=== PATIENT | female | born 1980 | race Caucasian/White ===

== ENCOUNTER 2023-07-01 18:25 | Emergency (ER) | payer MEDICAID, SELFPAY ==
--- NOTE | ~2023-07-01 | CT_ITS ---
EXAMINATION: CT ABDOMEN AND PELVIS WITH CONTRAST CLINICAL INFORMATION: Pain. COMPARISON: None available. TECHNIQUE: Multidetector volumetric images were obtained from the superior aspect of the liver through the pubic symphysis following administration 85 mL of Omnipaque 350 intravenous contrast. Sagittal and coronal reformatted images were obtained on the technologist's workstation. Oral contrast: No This CT examination was performed using dose optimization techniques as appropriate, variously including the following: *Automated exposure control *Adjustment of mA and/or kV according to patient size (this includes techniques or standardized protocols for targeted exams where dose is matched to indication/reason for exam; i.e. extremities or head) *Use of iterative reconstruction technique DLP: 552.69 mGy-cm FINDINGS: LUNG BASES: The visualized lung bases are unremarkable. LIVER, GALLBLADDER, AND BILIARY TREE: The liver is normal in size, shape, and attenuation. No focal hepatic lesion or biliary ductal dilatation is present. The gallbladder is unremarkable with no evidence of radiopaque gallstones, gallbladder wall thickening, or obvious pericholecystic inflammatory changes. PANCREAS: Unremarkable. SPLEEN: Unremarkable. ADRENAL GLANDS: There is bilateral adrenal gland nonspecific thickening.. KIDNEYS AND URETERS: The kidneys are normal in size, shape, and attenuation. No hydronephrosis, hydroureter, or calculi seen. No perinephric stranding. BLADDER: Unremarkable. GASTROINTESTINAL TRACT: The small and large bowel are unremarkable. The appendix is unremarkable. ABDOMINAL WALL: No significant hernia is appreciated. LYMPH NODES: Normal. VASCULAR: Unremarkable. PELVIC VISCERA: There is a complex mostly cystic mass within the left adnexa measuring up to 10 cm with some apparent septation and peripheral soft tissue component measuring up to 2.6 cm. OSSEOUS STRUCTURES: Unremarkable. CT/CT abdomen pelvis w IV con IMPRESSION: Complex septated mostly cystic left adnexal mass measuring up to 10 cm with an apparent peripheral soft tissue component. A cystic neoplasm is considered. Recommend nonemergent MRI and/or ultrasound assessment. No other significant abnormality seen. Fleischner guidelines were followed.
[2023-07-01 18:41] VITALS: BP 162/77; PULSE 70; RESP 18; TEMP 36.3; O2SAT 98; BMI 28.1
--- NOTE | 2023-07-01 18:41 | ED.GENADULT ---
HPI - General Adult General Chief complaint: Urogenital-Female Stated complaint: UTI symptoms Time Seen by Provider: 07/01/23 21:44 Source: patient Mode of arrival: ambulatory Limitations: no limitations History of Present Illness HPI narrative: Patient comes to the emergency room complaining of 1 episode of vomiting, intermittent nausea, suprapubic pain, complaining of dysuria , no flank pain, no fever chills. Patient's symptoms started earlier today. Related Data Previous Rx's Medication Instructions Recorded ibuprofen 400 mg tablet 400 mg PO Q6H PRN pain #30 tabs 07/02/23 tramadol 50 mg tablet 25 mg PO BID PRN pain #10 tabs 07/02/23 Allergies Allergy/AdvReac Type Severity Reaction Status Date / Time acetaminophen [From Tylenol] Allergy Nausea Verified 07/01/23 18:40 Review of Systems Review of Systems: Constitutional : No Weight loss, No Fever, No Chills, No Night Sweats, No Fatigue, No Malaise ENT/Mouth : No Hearing loss, No Ear Pain, No Nasal Congestion, No Sinus Pain, No Hoarseness, No sore throat, No Rhinorrhea, No Swallowing Difficulty Eyes: No Eye Pain, No Swelling, No Redness, No Foreign Body, No Discharge, No Vision Changes Cardiovascular : No Chest Pain, No SOB, No Dyspnea on Exertion, No Orthopnea, No Edema, No Palpitations Respiratory : No Cough, No Sputum, No Wheezing, No Smoke Exposure, No Dyspnea Gastrointestinal : Complaining of intermittent nausea and 1 episode of vomiting, No Diarrhea, No Constipation, complaining of suprapubic pain, No Hematochezia, No Melena Genitourinary : no irregular bleeding, complaining of Dysuria, No Urinary Frequency, No Hematuria, No Urinary Incontinence, No Urgency, No Flank Pain, No Urinary Flow Changes, No Hesitancy Musculoskeletal : No joint pain, No Myalgias, No Joint Swelling Skin : No Skin Lesions, No rash Neuro : No Weakness, No Numbness, No Paresthesias, No Loss of Consciousness, No Dizziness, No Headache Psych : No Anxiety/Panic, No Depression, No SI/HI/AH/VH, No Social Issues, Heme/Lymph: No Bruising, No Bleeding,No Lymphadenopathy Endocrine : No Polyuria, No Polydipsia, No Temperature Intolerance PMFSH Social History Social History Advance Directives: No Advance Directives Information Provided: No Physical Exam ED Vital Signs: Vital Signs - 24 hr 07/01/23 18:41 07/02/23 02:07 07/02/23 02:22 Temperature 97.3 F 97.6 F Pulse Rate 70 68 Respiratory Rate 18 18 16 Blood Pressure 162/77 H 160/74 H Pulse Oximetry 98 97 Oxygen Delivery Method Room Air Room Air BMI result Body Mass Index 28.1 Const Other: Appearance: Alert. Oriented X3. Seems uncomfortable Eyes: Pupils equal, round and reactive to light. ENT: Pharynx normal. Neck: Normal inspection. Neck supple. No lymph nodes noted. No crepitus CVS: Normal heart rate and rhythm. Pulses normal. Normal S1 and S2 Respiratory: No respiratory distress. Breath sounds normal. No Wheezing. No rales Abdomen: Soft and nontender. No rigidity. No distention. Skin: Skin warm and dry. Normal skin color. Normal skin turgor. Extremities: No lower extremity edema. No Lacerations. No Rash Neuro: Oriented X 3. No motor deficit. No sensory deficit. Moving all extremities. No slurred speech. CN 2 through 12 grossly intact Psych: calm, cooperative, normal affect Course Course Course Narrative: RME: 42 yold female presents to the ED lower abdominal pain and dysuria since today. Patient denies any nausea, vomitting, or flank pain. UA orderd Medications Administered Discontinued Medications Generic Name Dose Route Start Last Admin Trade Name Freq PRN Reason Stop Dose Admin Sodium Chloride 1,000 mls @ 999 mls/hr 07/01/23 21:49 07/01/23 23:05 Ns IVCONT 07/01/23 22:49 Infused .Q1H1M ONE Infusion Iohexol 85 ml 07/01/23 23:44 07/01/23 23:45 Iohexol 350 Mg/Ml 100 Ml Infus..Btl IV 07/01/23 23:45 85 ml ONCE ONE Administration Ketorolac Tromethamine 30 mg 07/01/23 21:49 07/01/23 22:10 Ketorolac Tromethamine 30 Mg/Ml Vial IVPUSH 07/01/23 21:50 30 mg ONCE ONE Administration Morphine Sulfate 4 mg 07/02/23 01:56 07/02/23 02:07 Morphine Sulfate 4 Mg/Ml Cartridge IVPUSH 07/02/23 01:57 4 mg ONCE ONE Administration Protocol Ondansetron HCl 4 mg 07/01/23 21:49 07/01/23 22:10 Ondansetron Hcl 4 Mg/2 Ml Vial IVPUSH 07/01/23 21:50 4 mg ONCE ONE Administration Medical Decision Making Medical Decision Making [facility] Narrative: -my interpretation of labs, patient has however blood cell count of 15. -patient receiving IV fluids, Zofran, Toradol -urinalysis is negative for UTI -my interpretation of CT of abdomen pelvis, there is a large mass versus cyst very close to the bladder -I discussed the radiology report with the patient. Ideally we should be getting at this time an ultrasound and in the morning and MRI. However, patient states that she has a acquisition lead at home taking care of her 10-year-old child and the patient cannot stay here. Although she is very scared about this information, patient requesting to be discharged so she can make arrangements for children's counselor and she will return in the morning in a few hours. Patient will need an ultrasound versus MRI. Differential Diagnosis Differential Diagnoses: The differential diagnosis associated with the presentation includes (Bladder cyst, ovarian cyst, bladder neoplasm, fibroid) Admission/Observation Consideration of admission/observation: Escalation of care including admission/observation considered (Admission was considered with consult to urology versus Ob Gyne, patient requested to be discharged) Lab Data [facility] Lab Attestation statement: I reviewed the patient's lab results. 07/01/23 21:11 07/01/23 21:11 Labs: Lab Results 07/01/23 07/01/23 07/01/23 Range/Units 21:11 21:11 21:11 WBC 15.0 H (4.8-10.8) X10*3/uL RBC 4.85 (4.20-5.50) X10*6/uL Hgb 14.0 (12.0-16.0) g/dl Hct 42.3 (37.0-47.0) % MCV 87.2 (80.0-98.0) fL MCH 28.9 (27.0-33.0) pg MCHC 33.1 (31.0-35.0) g/dl RDW 13.3 (11.0-16.0) % Plt Count 301 (160-400) X10*3/uL MPV 10.1 (9.4-12.3) fL Immature Gran % (Auto) 0.4 (0.0-0.4) % Neut % (Auto) 89.1 H (45-73) % Lymph % (Auto) 7.5 L (20-40) % Morrow % (Auto) 2.1 (2-11) % Eos % (Auto) 0.5 (0-4) % Baso % (Auto) 0.4 (0-2) % Lymph # (Auto) 1.1 L (1.2-4.9) X10*3/uL Morrow # (Auto) 0.3 (0.1-1.2) X10*3/uL Eos # (Auto) 0.1 (0.0-0.4) X10*3/uL Baso # (Auto) 0.1 (0.0-0.2) X10*3/uL Abs Immat Gran (auto) 0.06 H (0.00-0.03) X10*3/uL Absolute Neuts (auto) 13.4 H (2.0-8.3) x10*3/uL Absolute Nucleated RBC 0.000 (0.0-0.012) X10*3/uL Nucleated RBC % (auto) 0.0 (0.0-0.2) /100WBC Sodium 137 (135-145) mmol/L Potassium 4.2 (3.3-5.1) mmol/L Chloride 106 (96-108) mmol/L Carbon Dioxide 20 L (22-29) mmol/L Anion Gap 15 (12-20) BUN 9 (9-16) mg/dL Creatinine 0.73 (0.5-1.4) mg/dL Estim Creat Clear Calc 103.8 Estimated GFR > 60 Random Glucose 146 H (60-115) mg/dL Calcium 9.7 (8.4-10.2) mg/dL Urine Color [place] A Urine Appearance Clear Urine pH 8.0 (5.0-9.0) Ur Specific [place] 1.010 (1.005-1.025) Urine Protein See Note (Neg-Trace) mg/dL Urine Glucose (UA) See Note (Negative) mg/dL Urine Ketones See Note (Negative) mg/dL Urine Blood See Note (Negative) Urine Nitrite See Note (Negative) Ur Leukocyte Esterase See Note (Negative) Urine RBC 0-2 (0-2) /HPF Urine WBC 0-5 (0-5) /HPF Ur Squamous Epith Cells 0-2 (0-2) /HPF Urine Bacteria Trace (None Seen) Hyaline Casts 0-2 (0-2) /LPF Urine Test (NEGATIVE) 07/01/23 Range/Units 21:11 WBC (4.8-10.8) X10*3/uL RBC (4.20-5.50) X10*6/uL Hgb (12.0-16.0) g/dl Hct (37.0-47.0) % MCV (80.0-98.0) fL MCH (27.0-33.0) pg MCHC (31.0-35.0) g/dl RDW (11.0-16.0) % Plt Count (160-400) X10*3/uL MPV (9.4-12.3) fL Immature Gran % (Auto) (0.0-0.4) % Neut % (Auto) (45-73) % Lymph % (Auto) (20-40) % Morrow % (Auto) (2-11) % Eos % (Auto) (0-4) % Baso % (Auto) (0-2) % Lymph # (Auto) (1.2-4.9) X10*3/uL Morrow # (Auto) (0.1-1.2) X10*3/uL Eos # (Auto) (0.0-0.4) X10*3/uL Baso # (Auto) (0.0-0.2) X10*3/uL Abs Immat Gran (auto) (0.00-0.03) X10*3/uL Absolute Neuts (auto) (2.0-8.3) x10*3/uL Absolute Nucleated RBC (0.0-0.012) X10*3/uL Nucleated RBC % (auto) (0.0-0.2) /100WBC Sodium (135-145) mmol/L Potassium (3.3-5.1) mmol/L Chloride (96-108) mmol/L Carbon Dioxide (22-29) mmol/L Anion Gap (12-20) BUN (9-16) mg/dL Creatinine (0.5-1.4) mg/dL Estim Creat Clear Calc Estimated GFR Random Glucose (60-115) mg/dL Calcium (8.4-10.2) mg/dL Urine Color Urine Appearance Urine pH (5.0-9.0) Ur Specific [place] (1.005-1.025) Urine Protein (Neg-Trace) mg/dL Urine Glucose (UA) (Negative) mg/dL Urine Ketones (Negative) mg/dL Urine Blood (Negative) Urine Nitrite (Negative) Ur Leukocyte Esterase (Negative) Urine RBC (0-2) /HPF Urine WBC (0-5) /HPF Ur Squamous Epith Cells (0-2) /HPF Urine Bacteria (None Seen) Hyaline Casts (0-2) /LPF Urine Test NEGATIVE (NEGATIVE) Independent Interpretation I performed an independent interpretation of an: CT Scan Radiology Impression Radiologist Impression: FINDINGS: LUNG BASES: The visualized lung bases are unremarkable.? LIVER, GALLBLADDER, AND BILIARY TREE: The liver is normal in size, shape, and attenuation. No focal hepatic lesion or biliary ductal dilatation is present. The gallbladder is unremarkable with no evidence of radiopaque gallstones, gallbladder wall thickening, or obvious pericholecystic inflammatory changes.? PANCREAS: Unremarkable.? SPLEEN: Unremarkable.? ADRENAL GLANDS: There is bilateral adrenal gland nonspecific thickening..? KIDNEYS AND URETERS: The kidneys are normal in size, shape, and attenuation. No hydronephrosis, hydroureter, or calculi seen. No perinephric stranding. ? BLADDER: Unremarkable.? GASTROINTESTINAL TRACT: The small and large bowel are unremarkable. The appendix is unremarkable.? ABDOMINAL WALL: No significant hernia is appreciated.? LYMPH NODES: Normal. VASCULAR: Unremarkable. PELVIC VISCERA: There is a complex mostly cystic mass within the left adnexa measuring up to 10 cm with some apparent septation and peripheral soft tissue component measuring up to 2.6 cm.? OSSEOUS STRUCTURES: Unremarkable.? CT/CT abdomen pelvis w IV con IMPRESSION: Complex septated mostly cystic left adnexal mass measuring up to 10 cm with an apparent peripheral soft tissue component. A cystic neoplasm is considered. Recommend nonemergent MRI and/or ultrasound assessment. ? No other significant abnormality seen. Fleischner guidelines were followed. Critical Care Time Critical Care Time Critical Care Time: Yes Total Critical Care Time: 60 Attestation: I have personally provided critical care time. Time includes review of lab data, radiology results, discussion with consultants, and monitoring for potential decompensation. Intervention performed as documented. Discharge Plan Discharge Clinical Impression: Abnormal CT scan, pelvis, Dysuria Patient Disposition: Home, Self-Care Instructions: Dysuria (ED) Additional Instructions: Your CT scan of the abdomen and pelvis is abnormal, you will need an ultrasound or an MRI. You requested to be discharged home. Please return to emergency room as soon as possible for further imaging. Insert discharge Prescriptions: No Action ibuprofen 400 mg tablet 400 mg PO Q6H PRN (Reason: pain) Qty: 30 0RF tramadol 50 mg tablet 25 mg PO BID PRN (Reason: pain) Qty: 10 0RF Interventions: ED Discharge Assessment Last Done: 07/02/23 04:28 Discharge Date/Time: 07/02/23 04:29
--- NOTE | 2023-07-01 20:50 | PC.NURSE ---
UA was not collected while pt was in waiting room- pt had voided just prior to being called back to exam room. pt tearful, sts that her pain is in her lower abdomen, encouraged pt to give urine sample, water provided. call samayoa within reach
[2023-07-01 21:16] LABS: MANUAL DIFF FLAG NO
[2023-07-01 21:25] LABS: Basophils Absolute Auto 0.1 X10*3/uL (0.0-0.2); Basophils Percent Auto 0.4 % (0-2); Eosinophils Absolute Auto 0.1 X10*3/uL (0.0-0.4); Eosinophils Percent Auto 0.5 % (0-4); Hematocrit 42.3 % (37.0-47.0); Imm Gran Abs Auto 0.06 X10*3/uL (0.00-0.03); Imm Gran Pct Auto 0.4 % (0.0-0.4); Lymphocytes Absolute Auto 1.1 X10*3/uL (1.2-4.9); Lymphocytes Percent Auto 7.5 % (20-40); Mean Corpuscular HGB Conc 33.1 g/dl (31.0-35.0); Mean Corpuscular Hemoglobin 28.9 pg (27.0-33.0); Mean Corpuscular Volume 87.2 fL (80.0-98.0); Mean Platelet Volume 10.1 fL (9.4-12.3); Monocytes Absolute Auto 0.3 X10*3/uL (0.1-1.2); Monocytes Percent Auto 2.1 % (2-11); Neutrophils Absolute Auto 13.4 x10*3/uL (2.0-8.3); Neutrophils Percent Auto 89.1 % (45-73); Platelet Count 301 X10*3/uL (160-400); Red Blood Count 4.85 X10*6/uL (4.20-5.50); Red Cell Distribution Width 13.3 % (11.0-16.0)
[2023-07-01 21:29] LABS: UPreg QC Valid YES; Urine Pregnancy NEGATIVE (NEGATIVE)
[2023-07-01 21:40] LABS: Anion Gap 15 (12-20); Blood Urea Nitrogen 9 mg/dL (9-16); Calcium 9.7 mg/dL (8.4-10.2); Carbon Dioxide 20 mmol/L (22-29); Chloride 106 mmol/L (96-108); Creatinine Clr Calc Pharmacy 103.8; Estimated Glomerular Filt Rate > 60; Glucose Random 146 mg/dL (60-115); Potassium 4.2 mmol/L (3.3-5.1); Sodium 137 mmol/L (135-145)
[2023-07-01] MEDS: 0.9 % Sodium Chloride 1,000 ML 999 ML IVCONT (22:10)
[2023-07-01] MEDS: ondansetron HCL 4 MG/2 ML VIAL IVPUSH (22:10)
[2023-07-01] MEDS: Ketorolac Tromethamine 30 MG/ML VIAL IVPUSH (22:10)
[2023-07-01 22:11] LABS: Appearance Urine Clear; Color Urine Orange
[2023-07-01 22:19] LABS: Bacteria Urine Trace (None Seen); Hyaline Casts Urine 0-2 /LPF (0-2); RBC Urine 0-2 /HPF (0-2); Squamous Epithelial Cell Urine 0-2 /HPF (0-2); UMIC TRIGGER UACC YES; WBC Urine 0-5 /HPF (0-5)
[2023-07-01 22:20] LABS: UACC Culture Trigger NO
--- NOTE | 2023-07-01 23:01 | PC.NURSE ---
pt reporting increasing pain, now 06/28 provider notified via tiger connect
[2023-07-01] MEDS: iohexoL 350 MG/ML 100 ML INFUS..BTL 85 ML IV (23:45)
[2023-07-02 02:07] VITALS: RESP 18
[2023-07-02] MEDS: Morphine Sulfate 4 MG/ML CARTRIDGE IVPUSH (02:07)
[2023-07-02 02:22] VITALS: BP 160/74; PULSE 68; RESP 16; TEMP 36.4; O2SAT 97
--- NOTE | 2023-07-02 02:35 | PC.NURSE ---
pt medicated per Mar by LASHANDA Crum, Will continue to monitor.
--- NOTE | 2023-07-02 04:28 | PC.NURSE ---
Reviewed discharge instructions with pt, pt verbalized understanding, no sign of distress.
== END 2023-07-02 04:29 | disposition home or self-care (01) ==
PROVIDERS: Physician Assistant; Emergency Provider Emergency Medicine
DX: R30.0 Dysuria (principal); R11.2 Nausea with vomiting, unspecified; R10.2 Pelvic and perineal pain; R93.5 Abnormal findings on diagnostic imaging of other abdominal regions, including retroperitoneum; Z79.899 Other long term (current) drug therapy
CPT/HCPCS: 36415; 74177; 80048; 81001; 81003; 81025; 85025; 96374; 96375; 99284; J1885; J2270; J2405; Q9967

== ENCOUNTER 2023-07-02 09:21 | Emergency (ER) | payer MEDICAID, SELFPAY ==
--- NOTE | ~2023-07-02 | US_ITS ---
EXAMINATION: US PELVIS CLINICAL INFORMATION: Question ovarian mass on CT COMPARISON: CT abdomen pelvis 07/01/2023 TECHNIQUE: Ultrasound of the pelvis is performed using transabdominal transducers along with Doppler. FINDINGS: Uterus: The uterus is anteverted and measures 11.0 x 5.3 x 6.7 cm. A 1.5 cm intramural myoma in the uterine fundus. The double wall endometrial thickness is 0.7 mm. The uterus is smooth in contour and has normal myometrial echogenicity. No visible fibroid. Adnexa: Both ovaries are visualized. There is normal color flow to the adnexa. There is no ovarian torsion. There is no pelvic ascites or fluid collection. Right ovary measures 2.3 x 1.6 x 1.6 cm. The right ovary is unremarkable in appearance. Left ovary measures 12.6 x 7.6 x 9.6 cm. The left ovary is essentially replaced with a mixed solid and cystic septated adnexal mass measuring 13.0 x 8.6 x 8.7 cm. US/US pelvic ovarian doppler IMPRESSION: 1. The left ovary is essentially completely replaced with a mixed solid and cystic septated adnexal mass measuring 13.0, suspicious for gynecologic malignancy. Recommend gynecologic surgical evaluation. 2. A 1.5 cm intramural myoma in the uterine fundus. 3. Unremarkable sonographic appearance of the right ovary. The findings and recommendations were discussed with Chacha Waller MD by telephone at 07/02/2023 4:51 PM and it was ascertained that the content and urgency of the report was understood at the time of direct communication.
--- NOTE | ~2023-07-02 | US_ITS ---
EXAMINATION: US PELVIS CLINICAL INFORMATION: Question ovarian mass on CT COMPARISON: CT abdomen pelvis 07/01/2023 TECHNIQUE: Ultrasound of the pelvis is performed using transabdominal transducers along with Doppler. FINDINGS: Uterus: The uterus is anteverted and measures 11.0 x 5.3 x 6.7 cm. A 1.5 cm intramural myoma in the uterine fundus. The double wall endometrial thickness is 0.7 mm. The uterus is smooth in contour and has normal myometrial echogenicity. No visible fibroid. Adnexa: Both ovaries are visualized. There is normal color flow to the adnexa. There is no ovarian torsion. There is no pelvic ascites or fluid collection. Right ovary measures 2.3 x 1.6 x 1.6 cm. The right ovary is unremarkable in appearance. Left ovary measures 12.6 x 7.6 x 9.6 cm. The left ovary is essentially replaced with a mixed solid and cystic septated adnexal mass measuring 13.0 x 8.6 x 8.7 cm. US/US pelvic complete IMPRESSION: 1. The left ovary is essentially completely replaced with a mixed solid and cystic septated adnexal mass measuring 13.0, suspicious for gynecologic malignancy. Recommend gynecologic surgical evaluation. 2. A 1.5 cm intramural myoma in the uterine fundus. 3. Unremarkable sonographic appearance of the right ovary. The findings and recommendations were discussed with Chacha Waller MD by telephone at 07/02/2023 4:51 PM and it was ascertained that the content and urgency of the report was understood at the time of direct communication.
[2023-07-02 09:27] VITALS: BP 157/86; PULSE 85; RESP 16; TEMP 36.6; O2SAT 99; BMI 27.7
--- NOTE | 2023-07-02 14:07 | ED.FEMALEGU ---
HPI - Female Genitourinary General Chief complaint: Abdominal Pain Stated complaint: was told to return for us Time Seen by Provider: 07/02/23 13:40 Source: patient and family Mode of arrival: ambulatory History of Present Illness HPI Narrative: This is a 42-year-old female who returns after being evaluated last night for lower abdominal pelvic pain that she initially thought was secondary to a urinary tract infection, denies any association with fever/chills/nausea/vomiting or diarrhea. Patient continues to have mid lower abdominal pelvic pain, she has recently completed her menstrual cycle and denies any prescription medications. Related Data Previous Rx's Medication Instructions Recorded ibuprofen 400 mg tablet 400 mg PO Q6H PRN pain #30 tabs 07/02/23 tramadol 50 mg tablet 25 mg PO BID PRN pain #10 tabs 07/02/23 Allergies Allergy/AdvReac Type Severity Reaction Status Date / Time acetaminophen [From Tylenol] Allergy Nausea Verified 07/01/23 18:40 Review of Systems Review of Systems: Pertinent positives and negatives as stated in HPI PMFSH Past Medical History Source: nursing notes reviewed Social History Social History Advance Directives: No Advance Directives Information Provided: No Physical Exam Vital Signs: Vital Signs: Last Vital Signs Temp 98.9 F 07/02/23 14:21 Pulse 66 07/02/23 14:21 Resp 16 07/02/23 14:21 BP 150/72 H 07/02/23 14:21 Pulse Ox 100 07/02/23 14:21 O2 Del Method Room Air 07/02/23 14:21 BMI result Body Mass Index 27.7 VITAL SIGNS: Reviewed. GENERAL: Well developed, well nourished, in no acute distress. HEAD: Normocephalic/atraumatic EYES: PERRLA, EOMI EARS: Ext canals without abnormality NOSE: Nares patent bilateral OROPHARYNX: no oral lesions noted, posterior pharynx clear NECK: Supple, no adenopathy LUNGS: Normal breath sounds. No adventitious sounds or accessory muscle use. SpO2<99> CARDIOVASCULAR: Regular rate and rhythm without noted murmurs ABDOMEN: Soft, bed lower abdominal discomfort without rebound, non-distended with bowel sounds. MUSCULOSKELETAL: No tenderness, deformities, or effusions noted on gross inspection. EXTREMITIES: No cyanosis, clubbing or edema. SKIN: Inspection of the skin reveals no rashes NEUROLOGIC: Alert and oriented x 4. Strength and sensation to light touch were grossly intact x 4. Medications Administered Discontinued Medications Generic Name Dose Route Start Last Admin Trade Name Julio Cesar PRN Reason Stop Dose Admin Ibuprofen 600 mg 07/02/23 14:06 07/02/23 14:11 Ibuprofen 600 Mg Tablet PO 07/02/23 14:07 600 mg ONCE ONE Administration Tramadol HCl 25 mg 07/02/23 16:30 07/02/23 16:58 Tramadol Hcl 50 Mg Tablet PO 07/02/23 16:31 25 mg ONCE ONE Administration Medical Decision Making Medical Decision Making MDM Narrative: This is a 42-year-old female with history and clinical presentation of having a complex cyst of left adnexal mass measuring up to 10 cm with a component of peripheral soft tissue. On the CT scan last night radiology indicated concerns for possible cystic neoplasm. Patient's history is that she has just recently started having this abdominal discomfort and denies any associated be symptoms such as unexplained weight loss or night sweats. Patient is requesting pain medication and provided her with 600 mg ibuprofen and ordered a pelvic/transvaginal ultrasound, urine was negative last night. Also ordered ovarian Doppler study. DDX: Ovarian cancer, teratoma, chronic ovarian torsion. 1650: I discussed case with [facility] who identifies gynecological mass and recommends short-term follow-up with neurology hospitalist Onc. I did discuss with are in house digital solutions architect who will be unable to follow-up with the patient, but did provide some references for gynecology-oncology at either [facility] or [facility]. 1715: I discussed the results with the patient at bedside. Differential Diagnosis Differential Diagnoses: The differential diagnosis associated with the presentation includes Please see the discussion above Admission/Observation Consideration of admission/observation: Escalation of care including admission/observation considered Please see the discussion above Consult Healthcare Provider Management of the patient was discussed with: [employer] Please see the discussion above Radiology Impression Discussion of test interpretation with radiology: I have reviewed the radiologist's reading. Radiologist Impression: Please see the discussion above External Record Review External record reviewed: Outpatient record, Prior outpatient labs and Prior outpatient radiology Discharge Plan Discharge Clinical Impression: Adnexal mass Patient Disposition: Home, Self-Care Instructions: Ovarian Cyst (ED) Additional Instructions: You have findings today of an ovarian mass which should be promptly followed up with at either [facility] or [facility] (Dr. Tyler). Your ultrasound findings are as copied below: Left ovary measures 12.6 x 7.6 x 9.6 cm. The left ovary is essentially replaced with a mixed solid and cystic septated adnexal mass measuring 13.0 x 8.6 x 8.7 cm. Return to the ER for any worsening symptoms. Prescriptions: New ibuprofen 400 mg tablet 400 mg PO Q6H PRN (Reason: pain) Qty: 30 0RF tramadol 50 mg tablet 25 mg PO BID PRN (Reason: pain) Qty: 10 0RF Referrals: YOMAIRA TYLER [Physician] -
[2023-07-02] MEDS: Ibuprofen 600 MG TABLET PO (14:11)
[2023-07-02 14:21] VITALS: BP 150/72; PULSE 66; RESP 16; TEMP 37.2; O2SAT 100
[2023-07-02] MEDS: traMADoL HCL 50 MG TABLET 25 MG PO (16:58)
--- NOTE | 2023-07-02 17:33 | PC.NURSE ---
md luciano spoke with patient at bedside about test results and importance of follow up
== END 2023-07-02 17:59 | disposition home or self-care (01) ==
PROVIDERS: Emergency Provider Student in an Organized Health Care Education/Training Program
DX: R19.09 Other intra-abdominal and pelvic swelling, mass and lump (principal); D25.1 Intramural leiomyoma of uterus; R10.2 Pelvic and perineal pain
CPT/HCPCS: 76856; 93975; 99284